=== PATIENT | male | born 1970 | race Caucasian/White ===

== ENCOUNTER 2020-12-09 09:07 | Inpatient (IN) | payer OTHER, SELFPAY ==
[~2020-12-09] VITALS: Ht 185.4 cm; Wt 88.0 kg
[2020-12-09 09:07] VITALS: BP_SYST 163
--- NOTE | 2020-12-09 09:07 | NUR ---
BROUGHT BACK TO BED #8 AND TRIAGED. REPORT GIVEN TO SARAN/TOLU
--- NOTE | 2020-12-09 09:15 | NUR ---
# 20 gauge angiocath placed to l hand. Use of asceptic technique. Opsite placed over site. Blood return noted. Flushed with 10 cc of normal saline. No evidence of infiltration noted. Patient tolerated well.
--- NOTE | 2020-12-09 09:15 | NUR ---
ER at bedside examining patient.
--- NOTE | 2020-12-09 09:20 | NUR ---
pt. brought in by and brother with c/o fatigue, SOB on exertion, and cellulitis in genital area x 3 weeks. denies pain.
[2020-12-09] MEDS ORDERED: AZITHROMYCIN 500 MG in NS 250 ML IV ONE (09:30)
[2020-12-09] MEDS ORDERED: ENALAPRILAT DIHYDRATE 1.25 MG/ML VIAL IVP ONE (09:30)
[2020-12-09] MEDS ORDERED: cefTRIAXone 1 GM IVPB PREMIX 50 ML IV ONE (09:30)
--- NOTE | 2020-12-09 09:40 | NUR ---
accu check done, pt. c/o excessive thirst and 30 lb. weight loss in past 2 months, accu check read high notified Dr. Alvarado.
[2020-12-09] MEDS ORDERED: NACL 0.9% 1,000 ML IV ONE (09:45)
[2020-12-09] MEDS ORDERED: INSULIN REGULAR, HUMAN 10 UNITS/0.1 ML INJ IVP ONE (09:45)
[2020-12-09 09:52] LABS: BASOPHILS % (AUTO) 0.8 % (0.0-2.0); EOSINOPHILS # (AUTO) 0.1 K/uL (0.0-0.4); EOSINOPHILS % (AUTO) 1.1 % (0.0-4.0); HEMATOCRIT 47.4 % (36-54); HEMOGLOBIN 15.8 g/dL (14.0-18.0); LYMPHOCYTES # (AUTO) 1.2 K/uL (1.0-5.5); LYMPHOCYTES % (AUTO) 22.4 % (20.5-51.5); MEAN CORPUSCULAR HEMOGLOBIN 29 pg (27-31); MEAN CORPUSCULAR HGB CONC 33 % (32-36); MEAN CORPUSCULAR VOLUME 87 fL (79.0-98.0); MONOCYTES # (AUTO) 0.4 K/uL (0.0-1.0); MONOCYTES % (AUTO) 8.5 % (1.7-9.3); NEUTROPHILS # (AUTO) 3.5 K/uL (1.8-7.7); NEUTROPHILS % (AUTO) 67.2 % (40.0-70.0); PLATELET COUNT (AUTO) 235 K/uL (130-430); RED BLOOD CELL COUNT(AUTO) 5.47 MIL/uL (4.2-6.2); RED CELL DISTRIBUTION WIDTH 13.7 % (9.0-15.0); WHITE BLOOD COUNT (AUTO) 5.2 K/uL (4.8-10.8)
[2020-12-09] MEDS ORDERED: AZITHROMYCIN 500 MG/VIAL (ZITHROMAX) IV ONE (09:58)
--- NOTE | 2020-12-09 10:03 | NUR ---
10 units of regular insulin given IVP
[2020-12-09 10:08] LABS: ACETONE, SERUM POSITIVE (NEGATIVE)
[2020-12-09 10:09] LABS: ANION GAP 12 (5-15); CALCIUM 8.9 mg/dL (8.4-11.0); CHLORIDE 94 mmol/L (98-107); CREATININE 1.19 mg/dL (0.55-1.30); POTASSIUM 3.8 mmol/L (3.5-5.1); SODIUM SERUM 131 mmol/L (136-145); UREA NITROGEN, BLOOD 17 mg/dL (8-21)
[2020-12-09 10:11] LABS: ALANINE AMINOTRANSFERASE 49 U/L (12-78); ALBUMIN 3.8 g/dL (3.4-4.8); ASPARTATE AMINOTRANSFERASE 31 U/L (10-37); TOTAL BILIRUBIN 0.7 mg/dL (0.0-1.0)
[2020-12-09 10:15] LABS: GLUCOSE 608 mg/dL (70-99)
--- NOTE | 2020-12-09 10:36 | NUR ---
Notified ED Admitting regarding pt status of admission. Per pt facesheet, insurance is [employer]. Will contact the [facility] regarding this matter and will wait for call back.
--- NOTE | 2020-12-09 10:45 | NUR ---
accu check redone 355
[2020-12-09] MEDS ORDERED: NACL 0.9% 1,000 ML IV SCH (11:00)
[2020-12-09] MEDS ORDERED: DEXTROSE 50% JECT 50 ML DISP.SYRIN IVP PRN (11:00)
[2020-12-09] MEDS ORDERED: INSULIN REGULAR, HUMAN 100 UNITS in NS 99 ML IV PRN ×2 (11:00)
--- NOTE | 2020-12-09 11:03 | NUR ---
Med rec. and pt. belonging form done.
[2020-12-09 11:10] LABS: BILIRUBIN,URINE NEGATIVE (NEGATIVE); BLOOD, URINE NEGATIVE (NEGATIVE); CLARITY/URINE CLEAR (CLEAR); COLOR,URINE YELLOW (YELLOW); GLUCOSE,URINE 3+ (NEGATIVE); KETONES,URINE 1+ (NEGATIVE); LEUKOCYTE ESTERASE ,URINE NEGATIVE (NEGATIVE); NITRITE, URINE NEGATIVE (NEGATIVE); PROTEIN URINE NEGATIVE (NEGATIVE); UROBILINOGEN,URINE 0.2 (0.2-1.0)
[2020-12-09 11:16] LABS: PHOSPHORUS 4.9 mg/dL (2.7-4.5)
[2020-12-09 11:23] LABS: BACTERIA,URINE RARE /HPF (None Seen); MUCUS,URINE 1+ /LPF (None Seen); RBC,URINE 0-3 /HPF (0-3); WBC,URINE 0-3 /HPF (0-3)
--- NOTE | 2020-12-09 12:25 | NUR ---
accu check done 330
[2020-12-09 12:45] LABS: CALCIUM 8.4 mg/dL (8.4-11.0); CREATININE 0.96 mg/dL (0.55-1.30); PHOSPHORUS 3.7 mg/dL (2.7-4.5); POTASSIUM 3.7 mmol/L (3.5-5.1)
[2020-12-09 13:16] VITALS: BP_SYST 128
--- NOTE | 2020-12-09 13:16 | NUR ---
Patient will be admitted to care of Admitted to ICU unit. Will go to bed 5. Belongings list completed. Complete and up to date summary report printed. SBAR report to be given at bedside with opportunity for questions.
--- NOTE | 2020-12-09 13:25 | NUR ---
Received patient from ER via gurney transferred with ER staff. Breathing even and unlabored on room air. Denies pain. Awake, alert and oriented x 4, time, person, situation, name. Greeted patient, provided education orienting to unit, and answered questions from patient. Received report from ER nurse.
[2020-12-09] MEDS ORDERED: ACETAMINOPHEN 325 MG TABLET PO PRN (14:00)
[2020-12-09] MEDS ORDERED: POTASSIUM CHLORIDE 20 MEQ TAB.PRT.SR PO PRN (14:00)
[2020-12-09] MEDS ORDERED: INSULIN REGULAR, HUMAN 100 UNITS/ML, 10 ML VIAL SUBCUT ONE (14:00)
--- NOTE | 2020-12-09 14:23 | NUR ---
MD Page discussed advance directive with patient and second nurse witness, patient requesting to be modified code: do not intubate. MD Page and patient signed consent.
--- NOTE | 2020-12-09 14:30 | NUR ---
MD Page at bedside assessing patient. New orders to change blood sugar checks to ACHS, discontinue regular insulin and use regular sliding scale with 8 Units of regular insulin given one time now, IV fluids NS 150 ml every hour, 650 mg Tylenol every 6 hours as needed for pain, placed on CCHO diet, nystatin twice a day cream topically daily for fungal on penis, MD Arce for infection physician consultation, CBC and CMP for tomorrow am labs, and transfer to [facility] unit. Orders placed. Addendum: 12/09/20 at 1648 by Mikayla Almendarez RN EXTRA NOTE: MD Page new order potassium 40 mEq daily as needed for potassium lab under 3.4. Orders placed. CORRECTION: BMP not CMP for tomorrow am labs.
[2020-12-09] MEDS: NACL 0.9% 1,000 ML IV SCH ×2 (14:44→15:52)
--- NOTE | 2020-12-09 15:15 | NUR ---
MD Claude zarate for consultation.
[2020-12-09 16:00] VITALS: BP_SYST 129
[2020-12-09 16:01] VITALS: BP_SYST 129
[2020-12-09 16:44] LABS: CALCIUM 8.1 mg/dL (8.4-11.0); CREATININE 0.95 mg/dL (0.55-1.30); POTASSIUM 3.4 mmol/L (3.5-5.1)
[2020-12-09] MEDS: INSULIN REGULAR, HUMAN 100 UNITS/ML, 10 ML VIAL (humuLIN R) SUBCUT PRN ×2 (16:58→21:39)
--- NOTE | 2020-12-09 17:04 | NUR ---
Patient transferred via wheel chair with nurse and portable tele monitor to tele unit and placed in bed with side rails x 3 up. Call light with in reach. Report and patient given to MST nurse. Patient stated thank you for care.
--- NOTE | 2020-12-09 17:05 | NUR ---
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 Patient in stable condition. On room air and tolerating well with no signs of shortness of breath noted. Iv patent, running NS at 150ml/hr, no signs of infiltration noted. Bed locked and in lowest position. Call light within reach. Will continue to monitor.
--- NOTE | 2020-12-09 18:37 | NUR ---
CLOSING NOTE PATIENT IS RESTING IN BED. ON ROOM AIR AND TOLERATING WELL WITH NO SIGNS OF SHORTNESS OF BREATH. IV IS PATENT, INFUSING FLUIDS ORDERED. BED LOCKED AND IN LOWEST POSITION. CALL LIGHT WITHIN REACH.
--- NOTE | 2020-12-09 18:42 | NUR ---
MD Arce called facility back, informed placed as consultation for fungal of infection of penis per MD.
--- NOTE | 2020-12-09 19:32 | NUR ---
REFUSE SKIN assessment of abscess penis .
[2020-12-09 20:00] VITALS: BP_SYST 137; BP_SYST 148
[2020-12-09] MEDS: NYSTATIN 30 GM TOPICAL CREAM TP SCH (21:41)
[2020-12-09] MEDS: INSULIN GLARGINE 100 UNITS/ML 10 ML VIAL SUBCUT SCH (23:00)
--- NOTE | 2020-12-09 23:00 | NUR ---
REFUSE skin assessment of penis .
[2020-12-10 00:15] VITALS: BP_SYST 125
--- NOTE | 2020-12-10 00:17 | NUR ---
ASSIST Patient out of bed ambulates , BRP FALL MEASURES implemented CALL PENA PROCEDURES explained verbalize understanding .
--- NOTE | 2020-12-10 00:19 | NUR ---
BLOOD SUGAR BSG 254 mg dl Regular insulin sliding scale as ordered no DIABETIC Reaction noted skin dry warm .
--- NOTE | 2020-12-10 00:57 | NUR ---
Refused LANTUS insulin 10 units .
--- NOTE | 2020-12-10 01:14 | NUR ---
New ORDERS DR JOHANNY Murrieta.
--- NOTE | 2020-12-10 04:49 | NUR ---
consultation from Dr Claude GUSTAFSON still pending for fungal infection on penis .
[2020-12-10] MEDS: INSULIN REGULAR, HUMAN 100 UNITS/ML, 10 ML VIAL (humuLIN R) SUBCUT PRN ×4 (06:08→21:42)
[2020-12-10 06:19] LABS: BASOPHILS % (AUTO) 0.7 % (0.0-2.0); EOSINOPHILS # (AUTO) 0.1 K/uL (0.0-0.4); EOSINOPHILS % (AUTO) 1.5 % (0.0-4.0); HEMATOCRIT 46.1 % (36-54); HEMOGLOBIN 15.2 g/dL (14.0-18.0); LYMPHOCYTES # (AUTO) 1.7 K/uL (1.0-5.5); LYMPHOCYTES % (AUTO) 25.6 % (20.5-51.5); MEAN CORPUSCULAR HEMOGLOBIN 29 pg (27-31); MEAN CORPUSCULAR HGB CONC 33 % (32-36); MEAN CORPUSCULAR VOLUME 87 fL (79.0-98.0); MONOCYTES # (AUTO) 0.4 K/uL (0.0-1.0); MONOCYTES % (AUTO) 6.4 % (1.7-9.3); NEUTROPHILS # (AUTO) 4.5 K/uL (1.8-7.7); NEUTROPHILS % (AUTO) 65.8 % (40.0-70.0); PLATELET COUNT (AUTO) 226 K/uL (130-430); RED BLOOD CELL COUNT(AUTO) 5.28 MIL/uL (4.2-6.2); RED CELL DISTRIBUTION WIDTH 13.9 % (9.0-15.0); WHITE BLOOD COUNT (AUTO) 6.8 K/uL (4.8-10.8)
--- NOTE | 2020-12-10 07:46 | NUR ---
OPENING NOTE RECEIVED REPORT FROM NIGHT NURSE. PATIENT IS RESTING IN BED. ON ROOM AIR AND TOLERATING WELL WITH NO SIGNS OF SHORTNESS OF BREATH. IV IS PATENT, INFUSING FLUIDS ORDERED. BED LOCKED AND IN LOWEST POSITION. CALL LIGHT WITHIN REACH. WILL CONTINUE TO MONITOR.
[2020-12-10 08:00] VITALS: BP_SYST 150
[2020-12-10] MEDS: ATORVASTATIN 20 MG TABLET PO SCH (08:26)
[2020-12-10] MEDS: LISINOPRIL 10 MG TABLET (PRINIVIL) PO SCH (08:26)
[2020-12-10] MEDS: FLUCONAZOLE 100 mg/ NS 50 ML IV SCH (08:27)
[2020-12-10] MEDS: ENOXAPARIN SODIUM 40 MG/0.4 ML SYRINGE SUBCUT SCH (08:28)
[2020-12-10] MEDS: NYSTATIN 30 GM TOPICAL CREAM TP SCH ×2 (08:29→21:38)
[2020-12-10 08:46] LABS: CALCIUM 8.1 mg/dL (8.4-11.0); CREATININE 0.81 mg/dL (0.55-1.30); POTASSIUM 3.7 mmol/L (3.5-5.1)
[2020-12-10] MEDS: NACL 0.9% 1,000 ML IV SCH ×2 (09:54→15:21)
--- NOTE | 2020-12-10 11:36 | NUR ---
Nutrition Update Lopez Scale 17 noted. Pt admitted for DKA. Diet: [facility] BMI: 25.6 kg/m2 RD to follow per nutrition care standards.
--- NOTE | 2020-12-10 11:37 | NUR ---
HIGH BLOOD SUGAR BLOOD SUGAR 421, 12 UNITS GIVEN PER SLIDING SCALE. CALLED DR. ORLANDO, NO NEW ORDERS AT THIS TIME.
[2020-12-10 12:00] VITALS: BP_SYST 148
--- NOTE | 2020-12-10 15:50 | NUR ---
Dietitian Recommendations * Recommend [facility] diet w/ Gabe [address] Please refer to Nutrition Assessment for details. Addendum: 12/10/20 at [address] Amended: Links added.
[2020-12-10 16:00] VITALS: BP_SYST 157
--- NOTE | 2020-12-10 16:43 | NUR ---
DCP Notes: INSTITUTE SCIENTIST introduced self to patient who had been sleeping. Patient was able to confirm the demographics on the facesheet, was aware of why he was admitted to the hospital. Patient stated he will be returning home once he is medically cleared. After a few minutes, patient did not want to participate in this interview and became annoyed and asked INSTITUTE SCIENTIST to leave. INSTITUTE SCIENTIST let patient rest.
--- NOTE | 2020-12-10 17:32 | NUR ---
Patient wants to shower. Dr. Page said it was ok for patient to shower.
--- NOTE | 2020-12-10 18:37 | NUR ---
CLOSING NOTE PATIENT IS RESTING IN BED. ALERT AND ORIENTED X4. ON ROOM AIR AND TOLERATING WELL WITH NO SIGNS OF SHORTNESS OF BREATH. IV IS PATENT, INFUSING FLUIDS ORDERED. BED LOCKED AND IN LOWEST POSITION. CALL LIGHT WITHIN REACH. WILL ENDORSE TO NIGHT NURSE.
[2020-12-10 19:00] VITALS: BP_SYST 148
[2020-12-10] MEDS: INSULIN GLARGINE 100 UNITS/ML 10 ML VIAL SUBCUT SCH (21:43)
[2020-12-11] VITALS: BP_SYST 145
[2020-12-11] MEDS: INSULIN REGULAR, HUMAN 100 UNITS/ML, 10 ML VIAL (humuLIN R) SUBCUT PRN ×2 (06:21→11:38)
[2020-12-11 06:22] LABS: CALCIUM 8.9 mg/dL (8.4-11.0); CREATININE 1.1 mg/dL (0.55-1.30); POTASSIUM 3.6 mmol/L (3.5-5.1)
[2020-12-11 08:00] VITALS: BP_SYST 141
--- NOTE | 2020-12-11 08:00 | NUR ---
AM NOTES: PATIENT SLEEPING DURING ROUNDS. IV TO SALINE LOCK. ROOM AIR. CALL LIGHT WITH IN REACH. BED LOCKED AT LOWEST POSITION. NOT IN ANY DISTRESS.
[2020-12-11] MEDS ORDERED: ASPI-1393 PO (08:47)
[2020-12-11] MEDS ORDERED: NYST15CR TP (08:47)
[2020-12-11] MEDS ORDERED: GLU850 PO (08:47)
[2020-12-11] MEDS ORDERED: LISI10TA29 PO (08:47)
[2020-12-11] MEDS ORDERED: INSU100V9 SQ (08:47)
[2020-12-11] MEDS ORDERED: LIP20 PO (08:47)
--- NOTE | 2020-12-11 09:00 | NUR ---
PT REFUSED: PT REFUSED TO BE ASSESSED ON HIS INFECTED PENILE AREA.
[2020-12-11] MEDS: ATORVASTATIN 20 MG TABLET PO SCH (10:23)
[2020-12-11] MEDS: LISINOPRIL 10 MG TABLET (PRINIVIL) PO SCH (10:24)
[2020-12-11] MEDS: ENOXAPARIN SODIUM 40 MG/0.4 ML SYRINGE SUBCUT SCH (10:25)
[2020-12-11] MEDS: NYSTATIN 30 GM TOPICAL CREAM TP SCH (10:26)
[2020-12-11] MEDS: FLUCONAZOLE 100 mg/ NS 50 ML IV SCH (10:28)
[2020-12-11 10:46] VITALS: BP_SYST 141
--- NOTE | 2020-12-11 11:45 | NUR ---
D/C Patient Patient discharge packet and D/C instructions. Exit Care provided. Patient verbalized understanding. MD discussed with patient the results and treatment provided. Ambulatory with steady gait for discharge to home. Diabetic teaching provided. Patient in stable condition, ID band removed. IV catheter removed, intact and dressing applied, no active bleeding. E-script and Rx given. All belongings sent with patient.
== END 2020-12-11 11:45 | disposition home or self-care (01) | DRG 638 ==
LOC: SED 09:07 → SIC 10:57 → STU 17:32
PROVIDERS: ADMIT Hospitalist; ATTEND Hospitalist
DX: E11.00 Type 2 diabetes mellitus with hyperosmolarity without nonketotic hyperglycemic-hyperosmolar coma (NKHHC) (principal); R65.10 Systemic inflammatory response syndrome (SIRS) of non-infectious origin without acute organ dysfunction; I10 Essential (primary) hypertension; N48.1 Balanitis; E87.6 Hypokalemia; Z20.822 Contact with and (suspected) exposure to COVID-19; Z91.19 Patient's noncompliance with other medical treatment and regimen
CPT/HCPCS: 36415; 36600; 80048; 80053; 81000; 82009; 82803-TC; 82962; 83036; 83735; 84100; 85025; 87040-TC; 96365; 96367; 96375; 99291; G0378; J0456; J0696; J1450; J1650; J1815; J7030